=== PATIENT | male | born 2000 | race African-American/Black ===

== ENCOUNTER 2025-04-23 02:21 | Emergency (ER) | payer SELFPAY ==
[~2025-04-23] VITALS: Ht 170.2 cm; Wt 70.9 kg
[2025-04-23 03:14] LABS: COVID AG,FIA SOURCE NASAL SWAB
[2025-04-23 03:44] LABS: RAPID GROUP A STREP NEGATIVE (NEGATIVE)
[2025-04-23 03:46] LABS: INFLUENZA TYPE A NEGATIVE FOR TYPE A (NEGATIVE); INFLUENZA TYPE B NEGATIVE FOR TYPE B (NEGATIVE)
[2025-04-23 03:47] LABS: SARS-COV2 (COVID) ANTIGEN,FIA Negative (Negative)
[2025-04-23 05:40] VITALS: BP 124/76; PULSE 97; RESP 18; TEMP 99; O2SAT 97
[2025-04-23] MEDS ORDERED: CEPH-558 PO (06:19)
[2025-04-23] MEDS ORDERED: IBUP-1554 PO (06:19)
[2025-04-23] MEDS ORDERED: ACET-66 PO (06:19)
[2025-04-23] MEDS: CEPHALEXIN MONOHYDRATE 500 MG CAPSULE PO ONE (06:25)
[2025-04-23] MEDS: ACETAMINOPHEN 500 MG TABLET PO ONE (06:26)
== END 2025-04-23 06:38 | disposition home or self-care (01) ==
LOC: EMS 03:22
DX: J02.9 Acute pharyngitis, unspecified (principal); R05.9 Cough, unspecified; Z91.030 Bee allergy status; Z20.822 Contact with and (suspected) exposure to COVID-19
CPT/HCPCS: 99284; 87426; 87430; 87804; J7512